=== PATIENT | male | born 1985 | race African-American/Black ===

== ENCOUNTER 2017-03-26 20:09 | Emergency (ER) | payer OTHER ==
[~2017-03-26] VITALS: Ht 177.8 cm; Wt 80.5 kg
[~2017-03-26 20:09] MED LIST: ASPCH81X PO; ATOR10TA88 PO; BUSPAR 10MG PO; MIRT30TA3 PO; PROP20TA4 PO; RISP2TAB3 PO
[2017-03-26 20:15] VITALS: TEMP 36.7; Ht 177.8 cm; Wt 80.5 kg
[2017-03-26] MEDS ORDERED: PROPARACAINE HCL 0.5% OP SOLN 15 ML BTL OP STA (20:37)
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
--- NOTE | 2017-03-26 21:00 | DIAGNOSTIC IMAGING REPORT ---
CT ORBITS/SELLA/TEMP WITHOUT CT DOSE: 648.54 mGy.cm CLINICAL HISTORY: Left orbital pain status post trauma TECHNIQUE: Helical images were acquired in the transverse plane. Sagittal and coronal reformatted images were acquired. A dose lower technique was used consistent with a principle of ALARA COMPARISON STUDY: None. FINDINGS: There is a right maxillary sinus air-fluid level. The pterygoid plates appear intact. Zygomatic arches appear intact. Both globes appear intact. Visualized portions intracranial contents are normal. There is no orbital emphysema. The orbital dotson and floor appear intact. There is left periorbital and left frontal soft tissue edema. IMPRESSION: 1. Left periorbital and left frontal soft tissue edema 2. No facial fractures identified. 3. Right maxillary sinus air-fluid level Electronically signed by: Alfredo Welch M.D. 03/26/2017 8:58 PM Dictated Date/Time: 03/26/2017 8:55 PM
[2017-03-26] MEDS ORDERED: HYDR50CA2 PO (21:11)
[2017-03-26] MEDS ORDERED: ASPI81TA28 PO (21:11)
[2017-03-26] MEDS ORDERED: LITH1TAB PO (21:11)
[2017-03-26] MEDS ORDERED: RANI150T3 PO (21:11)
[2017-03-26] MEDS ORDERED: ZIPR1CAP4 PO (21:11)
--- NOTE | 2017-03-26 21:57 | EMERGENCY ROOM VISIT NOTE ---
ED Visit Note I was asked by Dr. Hamilton to perform an eye examination of the patient's left eye. EYES - PERRL with EOMI bilaterally. Sclera anicteric without noticeable foreign body or excoriations. no injection noted in the left eye. Left eye with subconjunctival hemorrhage in the 5clock position covering approximately 1/10 of the bulbar conjunctiva. No active hemorrhage. Slit lamp examination performed as further described. Slit Lamp Examination was performed of the Left eye(s). Alcaine drops were applied to the affected eye(s) for proper anesthetization. The affected eye(s) were stained with Fluorescein stain to precipitate adequate visualization of any conjunctival/scleral excoriations or ulcers. The patient's face was comfortably rested on the chin guard of the slit lamp apparatus. The lights were dimmed and the affected eye(s) were thoroughly examined under microscopy using the blue light. No uptake was present within the left eye. Additionally, the eye(s) were examined under microscopy using the regular light. Close examination revealed subconjunctival hemorrhage. Patient tolerated the procedure well and no complications were met. Negative Oskar sign. There is no globe rupture. An Automated Tonometer was utilized to obtain bilateral orbital pressures. The pressures in the LEFT eye were found to be 9, 8,9 and 9 with an average of 8.8. The pressures in the RIGHT eye were found to be 8, 9,8 and 8 with an average of 8.3. Patient tolerated the procedure well and no complications were met.
[2017-03-26 22:15] VITALS: BP 124/72; PULSE 86; O2SAT 96
== END 2017-03-26 22:33 | disposition home or self-care (01) ==
LOC: C.EDB 20:11
DX: S05.8X2A Other injuries of left eye and orbit, initial encounter (principal); W21.07XA Struck by softball, initial encounter; F17.200 Nicotine dependence, unspecified, uncomplicated; Z79.82 Long term (current) use of aspirin